=== PATIENT | female | born 1945 | race Caucasian/White ===

== ENCOUNTER → 2016-06-07 | Outpatient (CLI) | payer OTHER ==
[~2016-06-07] MED LIST: CHOL100010 PO; DSY/150 PO; FLUO10CA24 PO; LEVO125T72 PO
== END | disposition home or self-care (01) ==
LOC: C.MAMM 08:08
PROVIDERS: ATTEND Family Medicine
DX: M85.832 Other specified disorders of bone density and structure, left forearm (principal)

== ENCOUNTER → 2017-03-30 | Outpatient (CLI) | payer OTHER | END | disposition home or self-care (01) | LOC: C.RDSM 10:47 | PROVIDERS: ATTEND Orthopaedic Surgery | DX: M25.551 Pain in right hip (principal); M25.552 Pain in left hip ==

== ENCOUNTER → 2017-05-03 | Outpatient (CLI) | payer OTHER ==
[~2017-05-03] MED LIST changes: +CHOL20007 PO; +LEVO137T3 PO; +MAGN400T6 PO; +SACC250C11 PO
--- NOTE | 2017-05-03 09:31 | DIAGNOSTIC IMAGING REPORT ---
PELVIS 1 OR 2 VIEWS CLINICAL HISTORY: Right hip pain. Preoperative study. COMPARISON STUDY: 03/30/2017 FINDINGS: The iliac crests are not included on the current study. There are bilateral osteoarthritic changes right more severe than left. There are no acute fractures. There are no erosive or destructive changes. The study was performed with a sizing ball for preoperative measurement planning. IMPRESSION: Bilateral osteoarthritic changes, somewhat more severe on the right. No acute fractures. Electronically signed by: Tylor Liu M.D. 05/03/2017 9:29 AM Dictated Date/Time: 05/03/2017 9:26 AM
== END | disposition home or self-care (01) ==
LOC: C.RDSM 16:39
PROVIDERS: ATTEND Physician Assistant
DX: Z01.818 Encounter for other preprocedural examination (principal); M16.11 Unilateral primary osteoarthritis, right hip

== ENCOUNTER 2017-05-25 06:37 | Inpatient (IN) | payer OTHER ==
[2017-05-03 10:00] VITALS: BMI 33.0
--- NOTE | 2017-05-03 10:35 | PAT Medication Instructions ---
Service Date May 03, 2017. Current Home Medication List Cholecalciferol (Vitamin D3), 5,000 UNIT PO QAM Fluoxetine HCl (Fluoxetine HCl), 10 MG PO QAM Levothyroxine Sodium (Levothyroxine Sodium), 1 TAB PO QAM Magnesium Oxide (Mag-Ox), 400 MG PO QAM Saccharomyces Boulardii (Probiotic), 1 CAP PO QAM Trazodone HCl (Trazodone HCl), 75 MG PO HS Medication Instructions For Your Scheduled Surgery - Hold the following medications the morning of surgery: Saccharomyces Boulardii (Probiotic), 1 CAP PO QAM Magnesium Oxide (Mag-Ox), 400 MG PO QAM Cholecalciferol (Vitamin D3), 5,000 UNIT PO QAM - Take the following medications the morning of surgery with a sip of water: Fluoxetine HCl (Fluoxetine HCl), 10 MG PO QAM Levothyroxine Sodium (Levothyroxine Sodium), 1 TAB PO QAM - Take the following medications as scheduled the night before surgery: Trazodone HCl (Trazodone HCl), 75 MG PO HS If you have any questions please call us at [phone] or [phone] or [phone]
[2017-05-03 11:41] LABS: BASO % 0.9 %; BASO ABS # 0.05 K/uL (0-0.2); EOS % 2.1 %; EOS ABS # 0.12 K/uL (0-0.5); HEMOGLOBIN 13.2 g/dL (12.0-16.0); IG# 0.01 K/uL (0.00-0.02); LYMPH % 40.9 %; LYMPH ABS # 2.35 K/uL (1.2-3.4); MEAN CELL VOLUME 90.7 fL (80-100); MEAN CORPUSCULAR HEMOGLOBIN 30.7 pg (25-34); MEAN CORPUSCULAR HGB CONC 33.8 g/dl (32-36); MEAN PLATELET VOLUME 11.4 fL (7.4-10.4); MONO % 8.9 %; MONO ABS # 0.51 K/uL (0.11-0.59); PLATELET COUNT 227 K/uL (130-400); RED CELL DISTRIBUTION WIDTH CV 13.4 % (11.5-14.5); WHITE BLOOD COUNT 5.74 K/uL (4.8-10.8)
[2017-05-03 11:51] LABS: PTT PATIENT 25.9 SECONDS (21.0-31.0)
[2017-05-03 12:07] LABS: HEMOGLOBIN A1C 5.3 % (4.5-5.6)
[2017-05-03 12:26] LABS: ALBUMIN 3.7 gm/dl (3.4-5.0); ALT/SGPT 19 U/L (12-78); BLOOD UREA NITROGEN 20 mg/dl (7-18); CALCIUM 8.6 mg/dl (8.5-10.1); CARBON DIOXIDE 29 mmol/L (21-32); GLUCOSE 86 mg/dl (70-99); POTASSIUM 3.9 mmol/L (3.5-5.1); SODIUM 140 mmol/L (136-145)
[2017-05-03 12:28] LABS: ALKALINE PHOSPHATASE 73 U/L (45-117); AST/SGOT 15 U/L (15-37); TOTAL PROTEIN 6.8 gm/dl (6.4-8.2)
[~2017-05-25] VITALS: Ht 157.5 cm; Wt 82.2 kg
[2017-05-25] VITALS (12 sets, daily range): BP systolic 74–161; BP diastolic 43–80; PULSE 59–86; TEMP 36.3–37.1; O2SAT 92–97; Ht 157.5 cm; Wt 82.2 kg
[2017-05-25] MEDS: TRANEXAMIC ACID INJ 1,000 MG in SYRINGE 0 ML IV SCH ×2 (06:30→08:00)
[~2017-05-25 06:37] MED LIST changes: +ACETAMINOPHEN 500 MG TAB PO SCH; +CEFAZOLIN 2000MG IV PUSH 10 ML IV SCH; -CHOL100010 PO; +CeleBREX 200 MG CAP PO SCH; +DEXAMETHASONE 4 MG TAB PO SCH; +FAMOTIDINE 20 MG TAB PO SCH; +LACTATED RINGER'S 1000ML 1,000 ML IV SCH; +LACTATED RINGER'S 1000ML 500 ML IV SCH; +LACTATED RINGER'S 1000ML IV SCH; -LEVO125T72 PO; +ROPIVACAINE 5MG/ML 30 ML 150 MG, BUPIVACAINE/EPINEPHR 0.5% MPF 30 ML, KETOROLAC TROMETH... INFIL SCH; +SCOPOLAMINE 1.5 MG TDSY TD SCH; +TRAMADOL HCL 50 MG TAB PO SCH; +TRANEXAMIC ACID INJ 1,000 MG in SYRINGE 0 ML IV SCH; +VANCOMYCIN INJ 1,250 MG in SODIUM CHLORIDE 0.9% 250ML 250 ML IV SCH
[2017-05-25] MEDS ORDERED: BUPIVACAINE 0.5 % 5 MG/1 ML PF 10ML VIAL ONE (06:39)
--- NOTE | 2017-05-25 07:13 | History & Physical Bridge Note ---
H&P Re-Evaluation Bridge Note: I have examined the patient, reviewed the History & Physical and in the interval since the performance of the History & Physical I have noted the following changes of clinical significance: No changes noted
[2017-05-25] MEDS ORDERED: CEFAZOLIN SOD 2000MG/10 ML IV PUSH IV ONE (07:33)
[2017-05-25] MEDS ORDERED: CEFAZOLIN 2000MG IV PUSH 10 ML IV STA (07:37)
[2017-05-25] MEDS ORDERED: MIDAZOLAM HCL 1 MG/ML 2ML VIAL ONE (07:46)
[2017-05-25] MEDS ORDERED: FENTANYL CITRATE INJ 50 MCG/1 ML 2 ML VIAL ONE ×2 (07:46→09:52)
[2017-05-25] MEDS ORDERED: ORTHO JOINT ANESTHETIC ONE (07:58)
[2017-05-25] MEDS ORDERED: BACITRACIN 50000 UNIT VIAL ONE (07:58)
[2017-05-25] MEDS ORDERED: PROMETHAZINE HCL INJ 6.25 MG in SODIUM CHLORIDE 0.9% 50ML 50 ML IV PRN (08:45)
[2017-05-25] MEDS ORDERED: ONDANSETRON INJ 2 MG/ML 2 ML VIAL IV PRN ×2 (08:45→10:00)
[2017-05-25] MEDS ORDERED: EpHEDrine SULFATE INJ 50 MG/ML AMP IV PRN (08:45)
[2017-05-25] MEDS ORDERED: FENTANYL CITRATE INJ 50 MCG/1 ML 2 ML VIAL IV PRN (08:45)
[2017-05-25] MEDS ORDERED: ATROPINE SULFATE 0.1 MG/ML 5ML SYR IV PRN (08:45)
[2017-05-25] MEDS ORDERED: PROPOFOL IV EMULSION 10 MG/ML 20 ML VIAL IV ONE (09:04)
[2017-05-25] MEDS ORDERED: LIDOCAINE HCL 2% 2 ML VIAL (20MG/ML) ONE (09:05)
[2017-05-25] MEDS ORDERED: ONDANSETRON INJ 2 MG/ML 2 ML VIAL ONE (09:05)
[2017-05-25] MEDS ORDERED: DEXAMETHASONE SOD INJ 4 MG/ML VIAL ONE (09:05)
[2017-05-25] MEDS ORDERED: POVIDONE-IODINE OP SOLN 30 ML BTL ONE (09:21)
[2017-05-25] MEDS ORDERED: EpHEDrine SULFATE INJ 50 MG/ML AMP ONE (09:23)
[2017-05-25] MEDS ORDERED: HydrALAZINE HCL 20 MG/ML VIAL ONE (09:41)
--- NOTE | 2017-05-25 09:54 | [facility] Post Operative Brief Note ---
Immediate Operative Summary Operative Date May 25, 2017. Pre-Operative Diagnosis Degenerative Joint Disease Post-Operative Diagnosis Same as preop Procedure(s) Performed Right total hip arthroplasty Surgeon Dr. Singleton Slot Tag Inserter Surgeon(s) Oscar Washburn, Fellow Estimated Blood Loss 100 mL Findings Primary osteoarthritis R hip Fluids (cc crystalloids) 1800 cc Specimens Right hip bone and tissue Drains None Anesthesia Spinal with local Complication(s) None Disposition Recovery Room / PACU
[2017-05-25] MEDS ORDERED: MAGNESIUM HYDROXIDE SUSP 30 ML UDC PO PRN (10:00)
[2017-05-25] MEDS ORDERED: MoRPHine SULFATE 4 MG/ML 1 ML CARP\\VIAL IV PRN (10:00)
[2017-05-25] MEDS ORDERED: HYDROmorphone HCL 2 MG TAB PO PRN (10:00)
[2017-05-25] MEDS ORDERED: ZOLPIDEM TARTRATE 5 MG TAB PO PRN (10:00)
--- NOTE | 2017-05-25 10:48 | Anesthesiology Progress Note ---
Anesthesia Post Op Note Date & Time May 25, 2017 at 10:48 Vital Signs Pain Intensity: 0 Vital Signs Past 12 Hours Date Time Temp Pulse Resp B/P (MAP) Pulse Ox O2 Delivery O2 Flow Rate FiO2 05/25/17 10:46 77 13 105/48 92 05/25/17 10:46 78 13 05/25/17 10:42 112/51 05/25/17 10:41 15 05/25/17 10:41 78 15 05/25/17 10:39 36.7 05/25/17 10:36 14 05/25/17 10:36 78 14 115/49 05/25/17 10:31 80 12 113/50 05/25/17 10:31 12 05/25/17 10:30 80 16 05/25/17 10:30 79 16 94 05/25/17 10:26 121/52 05/25/17 10:25 81 16 94 05/25/17 10:25 81 16 05/25/17 10:21 112/54 05/25/17 10:20 81 20 05/25/17 10:20 81 20 97 05/25/17 10:15 36.6 83 12 113/53 90 Nasal Cannula 2 05/25/17 10:15 84 18 05/25/17 10:15 83 18 113/53 89 05/25/17 07:15 36.8 59 18 161/80 97 Room Air Notes Mental Status: alert / awake / arousable, participated in evaluation Pt Amnestic to Procedure: Yes Nausea / Vomiting: adequately controlled Pain: adequately controlled Airway Patency, RR, SpO2: stable & adequate BP & HR: stable & adequate Hydration State: stable & adequate Neuraxial Anesthesia: was administered, sensory block is resolving Anesthetic Complications: no major complications apparent
--- NOTE | 2017-05-25 11:02 | OPERATIVE REPORT ---
DATE OF OPERATION: 05/25/2017 PREOPERATIVE DIAGNOSIS: Right hip osteoarthritis. POSTOPERATIVE DIAGNOSIS: Same. OPERATION PERFORMED: Right total hip arthroplasty. SURGEON: Grzegorz Etienne MD. COMPUTER SUPPORT TECHNICIAN: Oscar Washburn MD. ESTIMATED BLOOD LOSS: 100 mL. IV FLUIDS: 1800 mL crystalloid. URINE OUTPUT: Not recorded. SPECIMENS: None. COMPLICATIONS: None. IMPLANTS: 1. DePuy 52 mm outer diameter Gription acetabular sector cup: 2. DePuy marathon polyethylene acetabular liner for a 32 mm head. 3. DePuy [place] size 4 standard offset tapered femoral stem. 4. Articul Ponce DePuy 32 mm femoral head +5 offset with a 12/14 taper. 5. Two [place] 6.5 mm cancellous bone screws, 1 measuring 40 mm and the other 20 mm. INDICATIONS: Ms. Christianson is a 72-year-old female who has had pain in her right hip for the past 2 years. This is affecting her quality of living. She is only able to walk about a half mile, but with severe pain. She has x-rays demonstrating joint space narrowing and peripheral osteophyte formation. Her physical exam shows a positive impingement test with equivocal Stinchfield test. Her hip flexion is limited only to 85 degrees with groin pain. She has failed conservative management. I had a long discussion with her about the risks and benefits of surgery, alternatives to surgery and expected outcomes. After reviewing all these, she elected to proceed. All questions were answered. Informed consent was signed. OPERATIVE FINDINGS: Severe degenerative joint disease, predominantly affecting the medial aspect of the hip but with also peripheral osteophyte formation. A metal on polyethylene bearing total hip replacement was performed without complication. DESCRIPTION OF PROCEDURE: The patient was identified in the preoperative holding area where her surgical site was marked. She was given a spinal anesthetic by anesthesia then brought back to the main operating room where she was placed on the operating room table, moved in the lateral decubitus position. An axillary roll was placed and all bony prominences were padded. Perioperative antibiotics and tranexamic acid were administered. She was prepped and draped in normal sterile fashion. Prior to incision, a multidisciplinary timeout was called. All in the room were in agreement. We began by making a 14 cm long incision centered over the posterolateral aspect of the greater trochanter for a posterior approach of the hip. We dissected down through subcutaneous tissues to the level of the fascia. The fascia was incised in line with the skin incision. Charnley bow was placed. The trochanteric bursa was excised. The piriformis and short external rotators as well as quadratus femoris were dissected off the posterior aspect of the femur. A box cut was made in the capsule and the hip was dislocated without difficulty. The neck cut was made at our preoperative template of approximately 12 mm above the lesser trochanter. The acetabulum was exposed. The contents of the cotyloid fossa were removed with electrocautery and a rongeur. The labrum was sharply excised with a knife. We then began to prepare acetabulum. We began by reaming with a 46 mm reamer to medialize the acetabulum. We then sequentially reamed up by 1 mm reamers until we reached a 51 mm reamer. We had excellent cancellous bony bleeding and it reamed down to, but not through, the medial wall as was our preoperative plan. We then used a 52 mm reamer just a touch to the outer wall of the acetabulum to prevent a rim fracture with insertion of the cup. I then opened up a 52 mm Gription cup which was impacted down into position with 40 degrees of lateral opening and 25 degrees of anteversion. Two cancellous bone screws were placed without difficulty. The polyethylene for a 32 mm head was then opened up and impacted down into position. We confirmed that the locking mechanism had engaged. We then placed a Ray-Eriberto in the cup to protect the liner and moved on to our femoral preparation. The femur was exposed using a Castro retractor as well as an angled Hohmann to protect the hip abductors. The lateral neck was excised and the canal finder was placed followed by a lateralizing reamer and a rat tail rasp to remove lateral bone from the proximal femur. We then sequentially reamed up to between a size 4 and 5 using the intramedullary reamers. We then began broaching. We broached up to a size 4, which sat nicely flush with our femoral neck cut and had excellent torsional stability. We then placed a standard offset neck with a +5 head. The hip was reduced without difficulty. A shuck test was appropriate. Her leg lengths were symmetrical as measured at the heels and the tops of the patella. The patient had no impingement with extension and external rotation. She was stable in the sleeper position and at 90 degrees of hip flexion she could internally rotate 50 degrees before starting to lever out of the cup. I was very happy with the stability exam. The trial femoral component was then removed. The femoral canal was irrigated out and dried. The size 4 standard offset stem was then opened up and impacted down into position. It sat approximately 1 mm more proud than the broach. We then opened up the +5 mm metal femoral head which was impacted down on the trunnion, which had been cleaned and dried. The hip was then reduced without difficulty. At this point, the 500 mL of Betadine impregnated solution was placed in the wound and was allowed to soak for 3 minutes. This was then removed from the wound and the wound was irrigated with normal saline. The periarticular injection cocktail of ketorolac, dexamethasone, ropivacaine, clonidine and epinephrine was then injected into the pericapsular soft tissues as well as in the subcutaneous tissues. We then began to close. The short external rotators and the piriformis were tagged with a #2 Vicryl suture. These were passed through the abductor tendon as well as through a single drill hole in the posterior aspect of the greater trochanter and tied down over a bony bridge. The fascia was run with a looped #1 PDS suture. Two layers of #1 PDS were used for the subcutaneous layers. A 3-0 Monocryl was placed in the dermal layer followed by Steri-Strips. A Silverlon dressing was then placed followed by 4 x 4's, and ABD pads and foam tape for a compressive dressing. The patient was placed into an abduction pillow rolled on to the hospital bed. Her sedation was lifted. She was transferred to recovery room in stable condition. POSTOPERATIVE COURSE: The patient will be admitted to floor. She will be weightbearing as tolerated with posterior hip precautions. She will be on aspirin for DVT prophylaxis. I attest to the content of the Intraoperative Record and any orders documented therein. Any exceptions are noted below. PERICO
--- NOTE | 2017-05-25 11:18 | DIAGNOSTIC IMAGING REPORT ---
R PELVIS/UNILATERAL HIP 1 VIEW HISTORY: 72 years-old Female IN PACU - A/P PELVIS and LATERAL HIP INCLUDING ALL OF IMPLANT status post right hip arthroplasty. Right hip osteoarthritis. COMPARISON: Pelvis radiograph 05/03/2017 TECHNIQUE: AP view of the pelvis with crosstable lateral view of the right hip. FINDINGS: The bones are mildly demineralized. Moderate left hip osteoarthritis. Degenerative changes are also seen within the SI joints and pubic symphysis. Postoperative changes from recent right hip total joint arthroplasty. No evidence of periprosthetic fracture or malalignment. Expected postsurgical soft tissue swelling and deep tissue air about the right hip and proximal right femur. No retained foreign body identified. Probable phleboliths of the pelvis. IMPRESSION: Status post right hip total joint arthroplasty without complication identified. The above report was generated using voice recognition software. It may contain grammatical, syntax or spelling errors. Electronically signed by: Stephen Farmer M.D. 05/25/2017 11:17 AM Dictated Date/Time: 05/25/2017 11:15 AM
[2017-05-25] MEDS: D5W AND 1/2NSS + 20MEQ KCL 1,000 ML IV SCH ×2 (13:28→23:25)
[2017-05-25] MEDS: KETOROLAC TROMETHAMINE 15 MG/ML VIAL IV. SCH ×3 (13:28→23:27)
[2017-05-25] MEDS: ACETAMINOPHEN 500 MG TAB PO SCH ×2 (13:29→21:49)
[2017-05-25] MEDS: TRAMADOL HCL 50 MG TAB PO PRN (14:21)
[2017-05-25] MEDS: CHECK SCOPOLAMINE PATCH PLACEMENT SCH ×2 (16:00→23:25)
[2017-05-25] MEDS ORDERED: TRANEXAMIC ACID INJ 1,000 MG in SODIUM CHLORIDE 0.9% 100ML 100 ML IV ONE (16:00)
[2017-05-25] MEDS: DOCUSATE SODIUM 100 MG CAP PO SCH (21:49)
[2017-05-25] MEDS: ASPIRIN 81 MG ECTAB PO SCH (21:49)
[2017-05-26 03:00] VITALS: BP 133/70; PULSE 73; TEMP 36.9; O2SAT 93
[2017-05-26] MEDS: KETOROLAC TROMETHAMINE 15 MG/ML VIAL IV. SCH (05:14)
[2017-05-26] MEDS: ACETAMINOPHEN 500 MG TAB PO SCH ×2 (05:16→14:03)
[2017-05-26 06:20] LABS: HEMATOCRIT 32.5 % (37-47); IG# 0.03 K/uL (0.00-0.02); LYMPH % 7.3 %; LYMPH ABS # 1.22 K/uL (1.2-3.4); MEAN CELL VOLUME 90.3 fL (80-100); MEAN CORPUSCULAR HEMOGLOBIN 30.6 pg (25-34); MEAN CORPUSCULAR HGB CONC 33.8 g/dl (32-36); MEAN PLATELET VOLUME 11.5 fL (7.4-10.4); MONO % 7.7 %; NEUT % 84.8 %; NEUT ABS # 14.23 K/uL (1.4-6.5); PLATELET COUNT 229 K/uL (130-400); RED CELL DISTRIBUTION WIDTH CV 13.7 % (11.5-14.5); RED CELL DISTRIBUTION WIDTH SD 45.3 fL (36.4-46.3); WHITE BLOOD COUNT 16.78 K/uL (4.8-10.8)
[2017-05-26 06:52] LABS: CALCIUM 8.4 mg/dl (8.5-10.1); CREATININE 1.04 mg/dl (0.60-1.20); POTASSIUM 4.3 mmol/L (3.5-5.1)
--- NOTE | 2017-05-26 07:33 | Orthopedic Progress Note ---
Orthopedic Progress Note Date of Service May 26, 2017. Subjective Post OP Day: 1 Reports: feeling well, pain controlled w PO medications, Denies: complaints, chest pain, SOB, nausea / vomiting Additional Notes: Pain has been controlled on toradol IV, tramadol, and tylenol. Hasn't taken any IV morphine or PO dilaudid. Walked to bathroom this morning. Objective N/V intact, dressing C/D/I, A&O x3, toes mobile Date Time Temp Pulse Resp B/P (MAP) Pulse Ox O2 Delivery O2 Flow Rate FiO2 05/26/17 03:00 36.9 73 17 133/70 (91) 93 Room Air 05/25/17 23:26 37.1 64 18 124/67 (86) 93 Room Air 05/25/17 19:43 36.7 67 16 139/75 (96) 92 Nasal Cannula 2.0 05/25/17 19:25 Room Air 05/25/17 17:25 86 105/72 (83) 94 Nasal Cannula 2.0 05/25/17 16:07 36.6 78 18 111/66 (81) 95 Nasal Cannula 2.0 05/25/17 15:29 70 96/52 (67) 94 Nasal Cannula 2.0 05/25/17 15:20 94/52 (66) 05/25/17 14:57 64 19 74/43 (53) 96 Room Air 75/44 (54) 87/51 (63) 05/25/17 14:10 36.3 75 16 101/49 (66) 93 Nasal Cannula 2.0 05/25/17 13:12 36.4 73 16 97/59 (72) 94 Room Air 2.0 05/25/17 11:43 36.4 63 95/53 (67) 96 Nasal Cannula 2.0 05/25/17 11:10 Nasal Cannula 2.0 05/25/17 11:10 94 Nasal Cannula 2.0 05/25/17 11:10 36.4 67 18 114/64 (81) 94 Nasal Cannula 2.0 05/25/17 10:56 103/48 05/25/17 10:52 78 14 05/25/17 10:52 78 14 94 05/25/17 10:51 105/47 05/25/17 10:47 78 15 05/25/17 10:47 79 15 95 05/25/17 10:46 77 13 105/48 92 05/25/17 10:46 78 13 05/25/17 10:42 112/51 05/25/17 10:41 15 05/25/17 10:41 78 15 05/25/17 10:39 36.7 05/25/17 10:36 14 05/25/17 10:36 78 14 115/49 05/25/17 10:31 80 12 113/50 05/25/17 10:31 12 05/25/17 10:30 80 16 05/25/17 10:30 79 16 94 05/25/17 10:26 121/52 05/25/17 10:25 81 16 94 05/25/17 10:25 81 16 05/25/17 10:21 112/54 05/25/17 10:20 81 20 05/25/17 10:20 81 20 97 05/25/17 10:15 36.6 83 12 113/53 90 Nasal Cannula 2 05/25/17 10:15 84 18 05/25/17 10:15 83 18 113/53 89 Laboratory Results 24 Hours: Test 05/26/17 05:31 White Blood Count 16.78 K/uL Red Blood Count 3.60 M/uL Hemoglobin 11.0 g/dL Hematocrit 32.5 % Mean Corpuscular Volume 90.3 fL Mean Corpuscular Hemoglobin 30.6 pg Mean Corpuscular Hemoglobin Concent 33.8 g/dl Platelet Count 229 K/uL Mean Platelet Volume 11.5 fL Neutrophils (%) (Auto) 84.8 % Lymphocytes (%) (Auto) 7.3 % Monocytes (%) (Auto) 7.7 % Eosinophils (%) (Auto) 0.0 % Basophils (%) (Auto) 0.0 % Neutrophils # (Auto) 14.23 K/uL Lymphocytes # (Auto) 1.22 K/uL Monocytes # (Auto) 1.30 K/uL Eosinophils # (Auto) 0.00 K/uL Basophils # (Auto) 0.00 K/uL Assessment & Plan Assessment: POD 1 s/p R HORACIO doing well Plan: PT/OT this AM May discharge home if cleared by PT/OT ASA, TEDs, footpumps for DVT prophylaxis
[2017-05-26 07:46] VITALS: BP 122/72; PULSE 60; TEMP 36.8; O2SAT 93
[2017-05-26] MEDS: CHECK SCOPOLAMINE PATCH PLACEMENT SCH (08:00)
--- NOTE | 2017-05-26 08:40 | Orthopedic Progress Note ---
Orthopedic Progress Note Date of Service May 26, 2017. Subjective Post OP Day: 1 Reports: feeling well, pain controlled w PO medications, Denies: complaints, chest pain, SOB, nausea / vomiting, light headedness, calf pain, using CRUISE GUIDE Objective calves soft nontender, N/V intact, hip located, capillary refill less than 2 sec., dressing C/D/I, A&O x3, toes mobile, CMS intact Date Time Temp Pulse Resp B/P (MAP) Pulse Ox O2 Delivery O2 Flow Rate FiO2 05/26/17 07:46 36.8 60 18 122/72 (89) 93 Room Air 05/26/17 03:00 36.9 73 17 133/70 (91) 93 Room Air 05/25/17 23:26 37.1 64 18 124/67 (86) 93 Room Air 05/25/17 19:43 36.7 67 16 139/75 (96) 92 Nasal Cannula 2.0 05/25/17 19:25 Room Air 05/25/17 17:25 86 105/72 (83) 94 Nasal Cannula 2.0 05/25/17 16:07 36.6 78 18 111/66 (81) 95 Nasal Cannula 2.0 05/25/17 15:29 70 96/52 (67) 94 Nasal Cannula 2.0 05/25/17 15:20 94/52 (66) 05/25/17 14:57 64 19 74/43 (53) 96 Room Air 75/44 (54) 87/51 (63) 05/25/17 14:10 36.3 75 16 101/49 (66) 93 Nasal Cannula 2.0 05/25/17 13:12 36.4 73 16 97/59 (72) 94 Room Air 2.0 05/25/17 11:43 36.4 63 95/53 (67) 96 Nasal Cannula 2.0 05/25/17 11:10 Nasal Cannula 2.0 05/25/17 11:10 94 Nasal Cannula 2.0 05/25/17 11:10 36.4 67 18 114/64 (81) 94 Nasal Cannula 2.0 05/25/17 10:56 103/48 05/25/17 10:52 78 14 05/25/17 10:52 78 14 94 05/25/17 10:51 105/47 1/4/18 10:47 78 15 05/25/17 10:47 79 15 95 05/25/17 10:46 77 13 105/48 92 05/25/17 10:46 78 13 05/25/17 10:42 112/51 05/25/17 10:41 15 05/25/17 10:41 78 15 05/25/17 10:39 36.7 05/25/17 10:36 14 05/25/17 10:36 78 14 115/49 05/25/17 10:31 80 12 113/50 05/25/17 10:31 12 05/25/17 10:30 80 16 05/25/17 10:30 79 16 94 05/25/17 10:26 121/52 05/25/17 10:25 81 16 94 05/25/17 10:25 81 16 05/25/17 10:21 112/54 05/25/17 10:20 81 20 05/25/17 10:20 81 20 97 05/25/17 10:15 36.6 83 12 113/53 90 Nasal Cannula 2 05/25/17 10:15 84 18 05/25/17 10:15 83 18 113/53 89 Laboratory Results 24 Hours: Test 05/26/17 05:31 White Blood Count 16.78 K/uL Red Blood Count 3.60 M/uL Hemoglobin 11.0 g/dL Hematocrit 32.5 % Mean Corpuscular Volume 90.3 fL Mean Corpuscular Hemoglobin 30.6 pg Mean Corpuscular Hemoglobin Concent 33.8 g/dl Platelet Count 229 K/uL Mean Platelet Volume 11.5 fL Neutrophils (%) (Auto) 84.8 % Lymphocytes (%) (Auto) 7.3 % Monocytes (%) (Auto) 7.7 % Eosinophils (%) (Auto) 0.0 % Basophils (%) (Auto) 0.0 % Neutrophils # (Auto) 14.23 K/uL Lymphocytes # (Auto) 1.22 K/uL Monocytes # (Auto) 1.30 K/uL Eosinophils # (Auto) 0.00 K/uL Basophils # (Auto) 0.00 K/uL Assessment & Plan Assessment: POD 1 s/p R HORACIO doing well Plan: PT/OT this AM Patient would like to go to rehab facility for approx 1 wk because she lives alone Would possibly like to transition to home rehab after week of inpatient rehab Will need eval by case management for inpatient rehab WBAT on Rt LE with walker assistance Cont to hip precautions ASA, TEDs, footpumps for DVT prophylaxis Will f/u w/ Bina Conner PA-C at [facility] in 2 wks
[2017-05-26] MEDS ORDERED: TRAM-10 PO (08:49)
[2017-05-26] MEDS ORDERED: ASPI81TA28 PO (08:49)
[2017-05-26] MEDS ORDERED: CLB/200 PO (08:49)
[2017-05-26] MEDS ORDERED: TYLOTC500 PO (08:49)
--- NOTE | 2017-05-26 08:53 | Discharge Instructions ---
Discharge Instructions Date of Service May 26, 2017. Admission Reason for Admission: Right Hip Primary Osteoarthritis Discharge Discharge Diagnosis / Problem: S/P Right total hip arthroplasty Discharge Goals Goal(s): Decrease discomfort, Improve function, Increase independence Activity Recommendations Activity Limitations: as noted below Lifting Limitations: until after follow-up appointment Exercise/Sports Limitations: until after follow-up appointment May Resume Sexual Activity: after follow-up appointment Shower/Bathe: tomorrow, keep incision dry Driving or Machine Use: No driving until cleared by orthopedic surgeon Weightbearing Status: Right weightbearing (as tolerated with walker assistance) . Instructions / Follow-Up Instructions / Follow-Up Post-operative Instructions Dear Patient and Family/Friends, Before you are discharged from the hospital, it is important to know what to expect when you get home after surgery. To that end, we have created this sheet of discharge instructions which covers many commonly asked questions. Make sure you go through this sheet in its entirety with your nurse before you are discharged. Please note that we will go over the specifics of your surgery and recovery when you return for your first post-operative visit. Sincerely, Dr. Etienne Pain Expect to be in a fair amount of pain after surgery. Remember, our goal is not to eliminate your pain, but to make it tolerable. It is a good idea to stay ahead of your pain by taking the medications you were prescribed once you get home. Typically, the pain starts improving 3-7 days after surgery. You should start weaning off the narcotic pain medication (oxycodone, hydrocodone, hydromorphone, morphine) as soon as your pain improves. Please call our office if your pain is not adequately controlled. Ice Ice your operative site at least 5 times a day for 15-30 minutes at a time. Make sure you have a thin cloth between the ice or cooling unit and your skin to prevent henao bite. This is especially important if you received a nerve block. Continue icing your operative site for the first 5-7 days after surgery , then as needed. Diet/Nausea/Vomiting Start by drinking clear liquids and eating crackers. If you can tolerate this, then you may resume your normal diet. If you feel nauseated or vomit, take Zofran/ondansetron (if prescribed). Please call our office if you have intractable nausea or vomiting, or, if after hours, you may go to the Emergency Room for help. Constipation Constipation is a common side effect of narcotic pain medication. If you have not had a bowel movement within 2 days after surgery, we recommend purchasing an over the counter laxative such as Milk of Magnesia, Dulcolax, or Miralax from a local pharmacy, and taking it as instructed. Call our clinic if any questions. Slings and Braces If you were placed in a sling or brace, it must be worn at all times, including sleep. You may remove your sling or brace for physical therapy, home exercises , and showering. The length of time you will be in your brace and range of motion restrictions depends on what surgery you had; these details will be reviewed at your first post-operative appointment. Nerve block The anesthesia team sometimes places a nerve block to help with post-operative pain control. This results in significant numbness and inability to move the extremity. The nerve block usually wears off in 8-12 hours, but sometimes can last up to 24 hours. Please call our office if you are still unable to move your extremity after 24 hours, unless you received a pain pump to take home. Nerve blocks typically wear off quickly, so start taking pain medication as soon as you start feeling soreness near your surgical site. Weight bearing and Range of Motion. Do not bear any weight through your operative extremity immediately after surgery. If you had upper extremity surgery, do not lift anything with that arm. If you are in a knee brace, keep it locked in place until your follow-up. We will discuss your weight bearing, range of motion, and lifting restrictions in detail at your first post-operative appointment. Continuous Passive Motion (CPM) Machine If you were prescribed a CPM machine, it will start after your first post- operative appointment, at which time we will give you instructions on the range of motion settings and duration of treatment Physical therapy You will be given a prescription for physical therapy or occupational therapy at your first post-operative appointment. Typically, patients start therapy within 1 week of surgery Wound care and showering We will inspect your wound at your first post-operative visit, and may do a dressing change at that time. Most patients will be in a water-proof dressing that is removed 14 days after surgery. It is normal to see some dried blood on the dressing. Do not remove your dressing, paper strips or sutures yourself unless you are given permission. Showering is allowed the day after surgery. Do not scrub or remove any dressings. The wound should not be submerged underwater (i.e. in a bathtub or pool) until 4 weeks after surgery KENDRA stockings If you were given white stockings, these are to be worn at all times except to shower (on both legs) for the first 2 weeks after surgery. Driving You may not drive while taking narcotic pain medication or while in a cast, splint, sling or brace. You, the patient, need to make the final determination about when you are safe to drive, however, the earliest you may consider driving after surgery is below: Hand/Wrist/Elbow Surgery: 3 days Shoulder Surgery: 2 weeks Hip,/Knee/Ankle Surgery: 4 weeks Fracture repair: 6 weeks Return to Work Your return to work depends on what surgery was done and what type of work you do. Please bring any paperwork your employer needs completed to your first post -operative visit. Also, bring a description of your job duties, as this helps us to understand what risks you may face at work. Travel Avoid long distance travel (greater than 1 hour) in airplanes and cars for the first 6 weeks after surgery. If you must travel, you need to have a Doppler ultrasound done before you travel to rule out a blood clot in your legs. Follow-up You should have a follow-up appointment already scheduled 1-2 days after surgery. If not, please contact our office to make this appointment before you leave the hospital. When to call the office It is normal to have swelling and bruising in the limb that was operated on. This will improve with time. It is also normal to have fevers for the first 2 days after surgery. Reasons you should call your doctor include: Uncontrolled pain; Nausea, vomiting, or constipation that does not improve with medication; Fevers over 101.5, chills, sweats; Drainage or bleeding from the wound; Foul odor; Spreading areas of redness; Any other concerns Current Hospital Diet Patient's current hospital diet: Regular Diet Discharge Diet Recommended Diet: Regular Diet Procedures Procedures Performed: Right total hip arthroplasty Pending Studies Studies pending at discharge: no Laboratory Results Hemoglobin A1c Test 05/03/17 10:42 Range/Units Estimated Average Glucose 105 mg/dl Hemoglobin A1c 5.3 4.5-5.6 % Medical Emergencies . Who to Call and When: Medical Emergencies: If at any time you feel your situation is an emergency, please call 911 immediately. . Non-Emergent Contact Non-Emergency issues call your: Primary Care Provider Call Non-Emergent contact if: you have a fever, temperature is above 101.5, your pain is not controlled, your pain is worsening, wound has increased drainage, you have any medication questions . "Provider Documentation" section prepared by Richard Conner. . Healthcare Management Consultant Recommendations Healthcare Management Consultant Recommendations: Recommend placement into inpatient rehab facility for at least 1 wk then possible home health rehab for an additional week. Will Discuss outpatient rehab at 2 wk post op follow visit at our clinic. VTE Core Measure Inpt VTE Proph given/why not?: Other Anticoagulation (EC Aspirin 81 mg), T.E.D. Stockings, SCD's [place] Drug Monitoring Program Search Results: patient reviewed within database, no issues identified, see additional documentation
--- NOTE | 2017-05-26 09:08 | Discharge Summary ---
Orthopedic Discharge Summary Admission Date/Reason May 25, 2017 at 07:48 Right Hip Primary Osteoarthritis. Discharge Date/Disposition May 26, 2017 Rehab ([facility] for at least 1 wk) Diagnosis Principal Diagnosis: Right hip osteoarthritis Procedure(s) Performed Right total hip arthroplasty Consultations office services coordinator for eval for inpatient therapy Medication Reconciliation Aspirin EC 81 mg 1 tab po daily for DVT Prophylaxis x 30 days Celebrex 200 mg 1 tab po daily prn for pain x 30 day with 1 refill Tylenol 500 mg 2 tabs po q 6 hrs prn pain x 30 days with 1 refill Tramadol 50 mg 1-2 tabs po q 4 hrs prn pain #60. See Med list for home meds. Admission Physical Exam As per Admitting History & Physical. Hospital Course Patient is post op day after undergoing Rt HORACIO. Had uneventful hospital stay last night. Pain well controlled with PO Meds. No CP, SOB, N/V, diarrhea or constipation. Neurovascular intact in Rt LE and dressing clean. Patient would like to be discharge to rehab facility for 1 wk then transition to in home rehab for an additional week. Spoke with case management from [facility] and they will eval for placement. At 2 wk f/u we will discuss outpatient rehab for an additional 6 wks. Discharge Instructions Please refer to the electronic Patient Visit Report (Discharge Instructions) for additional information.
[2017-05-26] MEDS: ASPIRIN 81 MG ECTAB PO SCH (09:14)
[2017-05-26] MEDS: DOCUSATE SODIUM 100 MG CAP PO SCH (09:14)
[2017-05-26 09:37] VITALS: O2SAT 93
[2017-05-26] MEDS ORDERED: NURSING VERBAL MED ORDER ONE (09:45)
[2017-05-26] MEDS ORDERED: TRAZODONE HCL 50 MG TAB PO PRN (09:45)
[2017-05-26] MEDS ORDERED: FLUOXETINE HCL 10 MG CAP PO SCH (10:00)
[2017-05-26] MEDS: TRAMADOL HCL 50 MG TAB PO PRN (10:03)
[2017-05-26 12:26] VITALS: BP 133/73; PULSE 60; TEMP 36.8; O2SAT 95
[2017-05-26 14:24] VITALS: BP 133/73; PULSE 60; TEMP 36.8; O2SAT 95
[2017-05-26] MEDS ORDERED: CeleBREX 200 MG CAP PO SCH (21:00)
[2017-05-27] MEDS ORDERED: LEVOTHYROXINE 137 MCG TAB PO SCH (06:00)
== END 2017-05-26 16:00 | DRG 470 ==
LOC: C.ACU 06:37 → C.3E 07:48 → ENRESERV 10:35
PROVIDERS: ADMIT Orthopaedic Surgery; ATTEND Orthopaedic Surgery
PROC: 0SR90JA Replacement of Right Hip Joint with Synthetic Substitute, Uncemented, Open Approach (ICD-10-PCS; principal; 2017-05-25 08:15)
DX: M16.11 Unilateral primary osteoarthritis, right hip (principal); Z79.899 Other long term (current) drug therapy

== ENCOUNTER → 2017-10-03 | Outpatient (CLI) | payer OTHER ==
[~2017-10-03] MED LIST changes: -ACETAMINOPHEN 500 MG TAB PO SCH; +ASPI81TA28 PO; -CEFAZOLIN 2000MG IV PUSH 10 ML IV SCH; +CLB/200 PO; -CeleBREX 200 MG CAP PO SCH; -DEXAMETHASONE 4 MG TAB PO SCH; -FAMOTIDINE 20 MG TAB PO SCH; -LACTATED RINGER'S 1000ML 1,000 ML IV SCH; -LACTATED RINGER'S 1000ML 500 ML IV SCH; -LACTATED RINGER'S 1000ML IV SCH; -ROPIVACAINE 5MG/ML 30 ML 150 MG, BUPIVACAINE/EPINEPHR 0.5% MPF 30 ML, KETOROLAC TROMETH... INFIL SCH; -SCOPOLAMINE 1.5 MG TDSY TD SCH; +TRAM-10 PO; -TRAMADOL HCL 50 MG TAB PO SCH; -TRANEXAMIC ACID INJ 1,000 MG in SYRINGE 0 ML IV SCH; +TYLOTC500 PO; -VANCOMYCIN INJ 1,250 MG in SODIUM CHLORIDE 0.9% 250ML 250 ML IV SCH
== END | disposition home or self-care (01) ==
LOC: C.RDSM 10:30
PROVIDERS: ATTEND Orthopaedic Surgery
DX: M25.562 Pain in left knee (principal); Z96.641 Presence of right artificial hip joint

== ENCOUNTER 2019-04-25 07:27 | Inpatient (IN) ==
--- NOTE | 2019-04-04 15:56 | PAT Medication Instructions ---
Medication Instructions Date of Service April 04, 2019 Home Medications Lactobacillus rhamnosus GG [Culturelle] 1 cap PO HS 04/02/19 [History Confirmed 04/02/19] cholecalciferol (vitamin D3) [Vitamin D3] 4,000 unit PO QAM 04/02/19 [History Confirmed 04/02/19] fluoxetine 10 mg PO QAM 04/02/19 [History Confirmed 04/02/19] levothyroxine 88 mcg PO QAM 04/02/19 [History Confirmed 04/02/19] trazodone 150 mg PO HS 04/02/19 [History Confirmed 04/02/19] DO NOT take the morning of surgery cholecalciferol (vitamin D3) [Vitamin D3] 4,000 unit PO QAM 04/02/19 [History Confirmed 04/02/19] Take morning of surgery With a small sip of water, OTHERWISE NOTHING TO EAT OR DRINK AFTER MIDNIGHT: fluoxetine 10 mg PO QAM 04/02/19 [History Confirmed 04/02/19] levothyroxine 88 mcg PO QAM 04/02/19 [History Confirmed 04/02/19] Take evening before surgery Lactobacillus rhamnosus GG [Culturelle] 1 cap PO HS 04/02/19 [History Confirmed 04/02/19] trazodone 150 mg PO HS 04/02/19 [History Confirmed 04/02/19] Other Notes If you have any questions please call us at [phone] or [phone] or [phone] or [phone]
--- NOTE | 2019-04-08 15:14 | History & Physical Report ---
Date of Service April 08, 2019 Assessment & Plan (1) Osteoarthritis of left hip: DIAGNOSIS: Left hip osteoarthritis. PROCEDURE: Left total hip arthroplasty. PLAN: The patient is scheduled to undergo this procedure with Dr. Grzegorz Etienne at the [facility] on 04/25/2019. Risks and complications of the surgery such as infection, bleeding, pain, scarring, nerve and blood vessel damage, weakness, wound problems, stiffness, incomplete relief of symptoms, heart attack, stroke, , hardware failure, loosening, wear, fracture dislocation, leg-length inequality, blood clots and embolism were explained to the patient by Dr. Etienne on her visit today. She understood and agreed. Informed consent to perform the procedure was obtained. We will also obtain a preoperative medical clearance from the patient's primary care provider, Dr. Orlando Daniel, along with preoperative CBC with differential, complete metabolic panel, PT/INR, blood type and screen, urinalysis, urine culture, EKG, a hemoglobin A1C. 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 We will also be sure that she receives vancomycin along with her preoperative Ancef. The patient will be provided with prescriptions for oxycodone for postoperative pain control upon discharge from the hospital. She will also be prescribed Diclofenac Sodium and Tylenol along with enteric-coated aspirin for DVT prophylaxis to use in addition to her KENDRA stockings. The patient will bring a walker with her to the hospital. She was given paperwork for a handicap placard that she will need to obtain prior to the procedure. We will provide her with PT and OT 2 to 3 times weekly for up to 6 weeks postoperatively at her 2 week follow up. She would like to do inhome therapy after discharge. The patient was again advised that she will need to take amoxicillin before dental procedures following her joint replacement. She was also given some information about attending classes to know what to expect after this procedure. The patient verbalized understanding of all information provided at today's visit, thanked us for the time that we have spent with her and states if she has questions or concerns that should arise prior to her scheduled surgery date, she will contact the clinic accordingly. History of Present Illness Chief Complaint: Left Hip pain Primary Care Provider: Orlando Daniel MD HISTORY OF PRESENT ILLNESS: This 74-year-old female presents to the clinic today for a preoperative history and physical. The patient has had a longstanding history of significant right hip pain for the past several years. The patient states she has been receiving massage therapy with no relief of her back or hip pain. She takes Aleve twice daily, which helps mildly. The patient also states she sees a chiropractor for spinal stenosis, but continues to have hip pain and states that it is affecting her daily life and prevents her from walking long distances that she had done regularly for several years. The patient refers most of her pain to the anterolateral aspect of her left hip. The patient denies numbness or tingling in her left lower extremity or any traumatic injury that may have caused this issue. PAST MEDICAL HISTORY: Depression, diverticulosis, fibromyalgia, gastroesophageal reflux, breast cancer, hypothyroidism, insomnia, lactose intolerance, lumbar spinal stenosis, obesity, osteopenia, and stress incontinence. PAST SURGICAL HISTORY: Right total hip arthroplasty, Colonoscopy, bilateral mastectomy, biopsy of the breast, excision of mastectomy scar, breast reconstruction, lymphoscintigraphy, core needle biopsy of the breast under ultrasound guidance, bilateral blepharoplasty, right ankle open reduction internal fixation. Total abdominal hysterectomy with bilateral salpingo- oophorectomy, dilation and curettage, basal cell carcinoma from the right calf and forehead, left cataract removal, bilateral tubal ligation. FAMILY HISTORY: Father: Aortic aneurysm, coronary artery bypass graft, smoking history, and colonic polyps. Mother: Cigarette smoker, COPD, osteoporosis. Daughter: Hypothyroidism. Son: Hypertension. Maternal grandfather: Type 2 diabetes. ALLERGIES: THE PATIENT HAS MEDICATION ALLERGIES TO CELEXA, EFFEXOR AND PERCOCET 5/325. CURRENT MEDICATIONS: Fluoxetine 10-mg oral tablet 1 cap daily, levothyroxine 88-mcg oral tablet 1 tab daily, trazodone 150-mg oral tablet 1/2 tab at bedtime, Tylenol Arthritis extended release 650-mg oral tablet 2 tabs every 8 hours as needed, vitamin D3 2000 international unit capsule 2 caps daily. SOCIAL HISTORY: The patient denies a history of cigarette smoking, drug abuse or any alcohol use. Allergies Allergy/AdvReac Type Severity Reaction Status Date / Time oxycodone Allergy Unknown Red Rash & Verified 04/02/19 13:54 Slight Fever Home Medications Home Medications Medication Instructions Recorded Confirmed Type Lactobacillus rhamnosus GG 1 cap PO HS 04/02/19 04/02/19 History [Culturelle] cholecalciferol (vitamin D3) 4,000 unit PO QAM 04/02/19 04/02/19 History [Vitamin D3] fluoxetine 10 mg PO QAM 04/02/19 04/02/19 History levothyroxine 88 mcg PO QAM 04/02/19 04/02/19 History trazodone 150 mg PO HS 04/02/19 04/02/19 History Past Med/Surg History Medical History Anxiety Chronic back pain Depression Fibromyalgia Hearing deficit B/L STONE History of right breast cancer s/p b/l mastectomy- RUE limb restriction Hypothyroidism Irregular heartbeat not noted per 2018 EKG or PCP records Irritable bowel syndrome with constipation Osteoarthritis Temporomandibular joint disorder Surgical History History of ankle surgery RT - hardware present History of bilateral mastectomy History of cataract surgery History of colonoscopy History of D&C History of reconstruction of both breasts History of right hip replacement History of total abdominal hysterectomy and bilateral salpingo-oophorectomy Family History Grandfather (Maternal) Family history of diabetes mellitus Social History Preferred Language: [place] Communication Ability: Effective 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 Beliefs That Will Affect Care: None Current Living Situation: Alone Other Information That Helps Us Care for You: No Feels Safe at Home: Yes Safety Concerns: Feels Safe At This Time Smoking Status: Former smoker Tobacco Type: cigarettes ; Do You Dip or Chew Tobacco: No ; Smoking End Date: QUIT IN HER TEENS ; Second Hand Exposure: Yes ( A CHILD) ; Tobacco Cessation Education Requested by Patient: No Hx Alcohol Use: No Hx Substance Use: No Review of Systems All systems reviewed & are unremarkable except as noted in HPI & below Physical Exam Physical Exam: PHYSICAL EXAMINATION: Skin: The patient's skin is normal in a ppearance. No open skin lesions or discharge. Eyes: Pupils are equal and reactive to light and accommodating. Extraocular movements are intact. Throat: Posterior oropharynx clear with absence of edema, erythema or exudate. Cardiovascular exam: The patient has a grade 1/6 holosystolic murmur heard best over the right upper sternal border. Lungs: Auscultation of lung mcdermott reveals clear breath sounds throughout with no wheezing, rales or rhonchi. Abdomen is obese, nondistended, nontender with normoactive bowel sounds. Extremities: Left hip exam reveals the patient's pain to be reproduced with passive flexion of the hip as well as external rotation and internal rotation in the seated position, which are limited to 35 and 5 degrees respectively. Neurological exam: Cranial nerves 2-12 are intact. No motor or sensory deficit. Psychological/general exam: The patient is alert and oriented x3 with proper grooming and hygiene.
--- NOTE | 2019-04-10 14:25 | Anesthesiology Consultation ---
Date of Service April 10, 2019 Assessment & Plan (1) Encounter for pre-operative examination: Medical Clearance 04/16/19 = "Cleared for surgery. Routine anticipatory guidance." Chart Review Chart Review: Acceptable Risk for Surgery (pending pcp clearance 04/16) and Patient seen in Pre Admission Testing Teaching & Discussion Instructed NPO after midnight before surgery, except medications with 15 cc of water. Medication instructions provided according to the PAT guidelines. History Surgery Operation Date: 04/25/19 08:15 Proposed Procedures p Left Total Hip Arthroplasty - Grzegorz Etienne MD Height/Weight Height: 5 ft 2.5 in Weight: 82.6 kg Allergies Allergy/AdvReac Type Severity Reaction Status Date / Time oxycodone Allergy Unknown Red Rash & Verified 04/02/19 13:54 Slight Fever Medications Home Medications Medication Instructions Recorded Confirmed Last Taken Lactobacillus rhamnosus GG 1 cap PO HS 04/02/19 04/02/19 Unknown [Culturelle] cholecalciferol (vitamin D3) 4,000 unit PO QAM 04/02/19 04/02/19 Unknown [Vitamin D3] fluoxetine 10 mg PO QAM 04/02/19 04/02/19 Unknown levothyroxine 88 mcg PO QAM 04/02/19 04/02/19 Unknown trazodone 150 mg PO HS 04/02/19 04/02/19 Unknown Past Medical History Medical History Anxiety Chronic back pain Depression Fibromyalgia Hearing deficit B/L STONE History of right breast cancer s/p b/l mastectomy- RUE limb restriction Hypothyroidism Irregular heartbeat not noted per 2018 EKG or PCP records Irritable bowel syndrome with constipation Osteoarthritis Temporomandibular joint disorder Has never locked, only clicks. Exercise / Class Metabolic Activity II 4-5 Yardwork/Stairs/Walk up hill (Limited by hip pain so moves slowly but denies CP or SOB with stairs) Past Family History Family History Grandfather (Maternal) Family history of diabetes mellitus Past Surgical History Surgical History History of ankle surgery RT - hardware present History of bilateral mastectomy History of cataract surgery History of colonoscopy History of D&C History of reconstruction of both breasts History of right hip replacement History of total abdominal hysterectomy and bilateral salpingo-oophorectomy History of tubal ligation Past Anesthesia History No Hx of Anesthesia Complications and No Family Hx of Anesthesia Complications History of PONV No Hx of PONV and No Hx of Motion Sickness Social History Smoking Status: Never smoker Do You Dip or Chew Tobacco: No Hx Alcohol Use: No Hx Substance Use: No substance use type: does not use Review of Systems Pt denies any recent chest pain, shortness of breath, palpitations, cough, fever or URI. Physical Exam Vital Signs BP: 143/66 P: 56bpm SPO2: 97% RA T: 98.0 F R: 16 ENMT Mouth: + dental restorations (several crowns) and + small oral opening; no chipped teeth and no loose teeth Thyromental Distance: < 3.5 Finger Breadths (3) Mallampati Class: III Neck normal visual inspection Respiratory normal respiratory effort Auscultation: lungs clear to auscultation bilaterally Cardiovascular Rate/Rhythm: regular rate and regular rhythm Heart Sounds: no murmur Vessels: no carotid bruit Extremities: no edema Testing Laboratory Results 04/10/19 14:50 04/10/19 14:50 PT 10.5 Seconds (9.0-12.0) 04/10/19 14:50 INR 1.0 (0.9-1.1) 04/10/19 14:50 APTT 26.1 Seconds (21.0-31.0) 04/10/19 14:50 Hemoglobin A1c 5.4 % (4.5-5.6) 04/10/19 14:50 Urine Color Yellow 04/10/19 14:50 Urine Appearance Clear (Clear) 04/10/19 14:50 Urine pH 7.0 (4.5-7.5) 04/10/19 14:50 Ur Specific [place] 1.023 (1.000-1.030) 04/10/19 14:50 Urine Protein Negative (Negative) 04/10/19 14:50 Urine Glucose (UA) Negative (Negative) 04/10/19 14:50 Urine Ketones Negative (Negative) 04/10/19 14:50 Urine Nitrite Negative (Negative) 04/10/19 14:50 Ur Leukocyte Esterase 1+ (Negative) H 04/10/19 14:50 Urine WBC (Auto) >30 /hpf (0-5) H 04/16/19 11:51 Urine RBC (Auto) 0-4 /hpf (0-4) 04/16/19 11:51 U Hyaline Cast (Auto) >30 /lpf (0-5) H 04/16/19 11:51 U Epithel Cells (Auto) 5-10 /lpf (0-5) H 04/16/19 11:51 Urine Bacteria (Auto) Negative (Negative) 04/16/19 11:51 Blood Type A Positive 04/10/19 14:50 Antibody Screen NEGATIVE 04/10/19 14:50 04/10/19 14:50 Urine Culture - Final Urine,Clean Catch More than three types of organisms present, all moderate counts mixed probable skin marin. No further identifications or sensitivities to follow. Electrocardiogram Date: 04/10/19 Findings: + SB @ (50bpm) MAGITWA.
[2019-04-10 15:32] LABS: Basophils # (auto) 0.03 K/uL (0-0.2); Basophils % (auto) 0.5 %; Eosinophils # (auto) 0.16 K/uL (0-0.5); Eosinophils % (auto) 2.9 %; Hematocrit (blood only) 37.1 % (37-47); Hemoglobin 12.2 g/dL (12.0-16.0); Immature Granulocytes # (auto) 0.01 K/uL (0.00-0.02); Immature Granulocytes % (auto) 0.2 %; Lymphocytes # (auto) 2.06 K/uL (1.2-3.4); Lymphocytes % (auto) 37.3 %; Mean Corpuscular Hgb Conc 32.9 g/dL (32-36); Mean Corpuscular Volume 88.3 fL (80-100); Mean Platelet Volume 11.5 fL (7.4-10.4); Monocytes % (auto) 7.2 %; Neutrophils # (auto) 2.87 K/uL (1.4-6.5); Neutrophils % (auto) 51.9 %; Platelet Count 271 K/uL (130-400); RDW Coefficient of Variation 13.8 % (11.5-14.5); RDW Standard Deviation 44.7 fL (36.4-46.3); White Blood Count 5.53 K/uL (4.8-10.8)
[2019-04-10 15:38] LABS: Appearance Urine Clear (Clear); Bacteria Urine Automated Negative (Negative); Bilirubin Urine Negative (Negative); Blood Urine Negative (Negative); Cast Urine Automated 0 /lpf (0-5); Color Urine Yellow; Epithelial Cell Urine Auto 20-30 /lpf (0-5); Glucose Urine UA Negative (Negative); Ketones Urine Negative (Negative); Leukocyte Esterase Urine 1+ (Negative); Nitrite Urine Negative (Negative); Protein Urine Negative (Negative); RBC Urine Automated 0-4 /hpf (0-4); Specific Gravity Urine 1.023 (1.000-1.030); Urobilinogen Urine Negative (Negative)
[2019-04-10 15:40] LABS: BUN Creatinine Ratio 23.8 (10-20); Calcium 8.8 mg/dl (8.5-10.1); Creatinine Clr Calc Pharmacy 58.9 ml/min; Est GFR (African American) 77.1; Est GFR (Non-African American) 66.6; Potassium 4.1 mmol/L (3.5-5.1)
[2019-04-10 15:43] LABS: Albumin Globulin Ratio 1.3 (0.9-2); Bilirubin,Total 0.5 mg/dl (0.2-1); Globulin 3.2 gm/dl (2.5-4.0); Total Protein 7.2 gm/dl (6.4-8.2)
[2019-04-10 15:44] LABS: Partial Thromboplastin Time 26.1 Seconds (21.0-31.0); Prothrombin Time 10.5 Seconds (9.0-12.0)
[2019-04-11 05:48] LABS: Estimated Average Glucose 108 mg/dl; Hemoglobin A1C 5.4 % (4.5-5.6)
[2019-04-16 14:58] LABS: Bacteria Urine Automated Negative (Negative); RBC Urine Automated 0-4 /hpf (0-4); WBC Urine Automated >30 /hpf (0-5)
[2019-04-16 15:28] LABS: Cast Urine Automated >30 /lpf (0-5)
[~2019-04-25 07:27] MED LIST changes: +ACETAMINOPHEN 500 MG TAB PO SCH; -ASPI81TA28 PO; +BUPIVACAINE 0.5 % 5 MG/1 ML PF 10ML VIAL ONE; +CEFAZOLIN 2000MG 2,000 MG/15 ML SYR IV SCH; -CHOL20007 PO; -CLB/200 PO; +CeleBREX 200 MG CAP PO SCH; -DSY/150 PO; +FAMOTIDINE 20 MG TAB PO SCH; -FLUO10CA24 PO; +GENERAL ORDER PROBLEM SCH; -LEVO137T3 PO; +LR 500ML BOLUS, THEN 15ML/HR IV SCH; +LR 60ML/HR IV SCH; -MAGN400T6 PO; +METOCLOPRAMIDE HCL 10 MG TABLET PO SCH; +ROPIVACAINE 0.5% HCL/PF 150 MG, BUPIVACAINE 0.5% MPF 30 ML, EPINEPHrine 0.15 MG, Ketoro... INFIL SCH; +ROPIVACAINE 0.5% HCL/PF 150 MG, BUPIVACAINE 0.5% MPF 30 ML, EPINEPHrine 30MG/30ML (OR U... INSTIL SCH; -SACC250C11 PO; +SCOPOLAMINE 1.5 MG TDSY TD SCH; -TRAM-10 PO; +TRAMADOL HCL 50 MG TABLET PO SCH; +TRANEXAMIC ACID 1,000 MG **IV Intra-op IV SCH; +TRANEXAMIC ACID 1,000 MG **IV Pre-op IV SCH; -TYLOTC500 PO; +VANCOMYCIN HCL 1,250 MG in SODIUM CHLORIDE 0.9% 250 ML IV SCH; +dexAMETHasone 4 MG TAB PO SCH
[2019-04-25] MEDS ORDERED: MIDAZOLAM HCL 1 MG/ML 2ML VIAL ONE ×2 (09:13→11:09)
[2019-04-25] MEDS ORDERED: fentaNYL citrate 100 MCG/2 ML VIAL ONE ×4 (09:13→11:11)
[2019-04-25] MEDS ORDERED: fentaNYL citrate 100 MCG/2 ML VIAL IV PRN (09:53)
[2019-04-25] MEDS ORDERED: ATROPINE SULFATE 0.1 MG/ML 10ML SYR IV PRN (09:53)
[2019-04-25] MEDS ORDERED: ePHEDrine sulfate 50 MG/ML AMP IV PRN (09:53)
[2019-04-25] MEDS ORDERED: ONDANSETRON INJ 2 MG/ML 2 ML VIAL IV PRN ×2 (09:53→12:26)
--- NOTE | 2019-04-25 10:08 | History & Physical Bridge Note ---
Date of Service April 25, 2019 History & Physical Bridge Note I have examined the patient, reviewed the History & Physical and in the interval since the performance of the History & Physical I have noted the following changes of clinical significance: no changes noted
[2019-04-25] MEDS ORDERED: ORTHO JOINT ANESTHETIC ONE (10:12)
[2019-04-25] MEDS ORDERED: PROPOFOL IV EMULSION 10 MG/ML 20 ML VIAL IV ONE (11:10)
[2019-04-25] MEDS ORDERED: ONDANSETRON INJ 2 MG/ML 2 ML VIAL ONE (11:10)
[2019-04-25] MEDS ORDERED: LIDOCAINE HCL 2% 2 ML VIAL/AMP(20MG/ML) INFIL ONE (11:10)
--- NOTE | 2019-04-25 12:24 | Operative Report ---
Post Operative Report Pre & Post Diagnosis Operation Date: 04/25/19 10:10 Pre-Op Diagnosis: Left Hip Osteoarthritis Post-Op Diagnosis: Left Hip Osteoarthritis I identified the patient and participated in the time-out.: Yes Procedure Operation Date: 04/25/19 10:10 Actual Procedures p Left Total Hip Arthroplasty(Left) - Grzegorz Etienne MD Surgeon Grzegorz Etienne MD Back Tender Pulp Drier RIAZ Conner PA-C Estimated Blood Loss 100 Findings Consistent with Post-Op Diagnosis Specimens Femoral head Anesthesia Type Spinal MAC Complications none Disposition Accompanied Patient To Recovery: No Disposition: Recovery Room Description of Procedure see dictated note I attest to the content of the Intraoperative Record and any orders documented therein. Any exceptions are noted below.
--- NOTE | 2019-04-25 12:25 | Operative Report ---
Post Operative Report Pre & Post Diagnosis Operation Date: 04/25/19 10:10 Pre-Op Diagnosis: Left Hip Osteoarthritis Post-Op Diagnosis: Left Hip Osteoarthritis I identified the patient and participated in the time-out.: Yes Procedure Operation Date: 04/25/19 10:10 Actual Procedures p Left Total Hip Arthroplasty(Left) - Grzegorz Etienne MD Surgeon Grzegorz Etienne MD It Consulting Manager Bina Conner PA-Erik Estimated Blood Loss 100 Findings Consistent with Post-Op Diagnosis Specimens Left femoral head Complications none Disposition Accompanied Patient To Recovery: Yes Disposition: Recovery Room Description of Procedure I was present during the entire procedure assisting with wound closure and dressing application. Please see Dr. Etienne procedure note for specifics of the case. I attest to the content of the Intraoperative Record and any orders documented therein. Any exceptions are noted below.
[2019-04-25] MEDS ORDERED: DiphenhydrAMINE HCL 50 MG/ML VIAL IV PRN (12:26)
[2019-04-25] MEDS ORDERED: ALUMINUM/MAGNESIUM SUSP 30 ML UDC PO PRN (12:26)
[2019-04-25] MEDS ORDERED: NALOXONE HCL 0.4 MG/1 ML VIAL/CARP IV PRN (12:26)
[2019-04-25] MEDS ORDERED: MAGNESIUM HYDROXIDE SUSP 30 ML UDC PO PRN (12:26)
[2019-04-25] MEDS ORDERED: HYDROmorphone INJ 0.5 MG/0.5 ML SYR IV PRN (12:26)
[2019-04-25] MEDS ORDERED: OXYCODONE HCL IR 5 MG TAB (IMMEDIATE RELEASE) PO PRN (12:26)
[2019-04-25] MEDS ORDERED: METOCLOPRAMIDE HCL INJ 5 MG/ML 2 ML VIAL IV PRN (12:26)
[2019-04-25] MEDS ORDERED: bisacodyL 10 MG SUPP PR PRN (12:26)
--- NOTE | 2019-04-25 12:50 | Operative Report ---
DATE OF OPERATION: 04/25/2019 PREOPERATIVE DIAGNOSIS: Left hip osteoarthritis. POSTOPERATIVE DIAGNOSIS: Left hip osteoarthritis. OPERATIONS PERFORMED: Left total hip arthroplasty. SURGEON: Grzegorz Etienne MD. AUTOMOTIVE PARTS COORDINATOR: Richie Conner. ESTIMATED BLOOD LOSS: 100 mL INTRAVENOUS FLUIDS: 1400 mL crystalloid. SPECIMENS: Femoral head. COMPLICATIONS: None. IMPLANTS: 1. DePuy [place] Gription acetabular shell sector cup 52 mm outer diameter. 2. DePuy [place] cancellous bone screw 6.5 x 45 mm. 3. DePuy Ultrex polyethylene liner for a 32 mm femoral head. 4. DePuy [place] femoral stem with a 12/14 taper size 4 standard offset. 5. DePuy metal Articul/Ponce femoral head, 32 mm diameter with a +5 offset. INDICATIONS: Ms. Christianson is a 74-year-old female who is status post a right total hip arthroplasty in 05/2017, almost 2 years ago. She had an excellent result from the surgery. She has now developed end-stage osteoarthritis of the left hip with symptoms similar to other side. X-rays demonstrate severe osteoarthritis. She has failed conservative management. I had a long discussion with her about the risks and benefits of surgery, alternatives to surgery and expected outcomes. After reviewing all these, she elected to proceed with surgery. All questions were answered. Informed consent was signed. OPERATIVE FINDINGS: Severe degenerative osteoarthritis of the hip was noted. She also had a retroverted acetabulum with a prominent anterior rim. A total hip arthroplasty was performed through a posterior approach utilizing metal on polyethylene bearing surface. The anterior osteophyte was resected. Components implanted were the same as were used in her other hip with the exception of the cancellous screws. DESCRIPTION OF THE OPERATION: The patient was identified in the preoperative holding area where her surgical site was marked. She was given a spinal anesthetic and brought back to main operating room where she was placed on the operating table and IV sedation was administered. She was carefully moved into the lateral decubitus position. Axillary roll was placed. All bony prominences were padded. Perioperative antibiotics and tranexamic acid were administered. She was prepped and draped in the normal sterile fashion. Prior to incision, a multidisciplinary timeout was called. All in the room were in agreement. We began by checking her leg lengths. She was a couple millimeters shorter on the left side than the right side. We then made our posterior approach to the hip utilizing a 14 cm long incision. I dissected down through subcutaneous tissues to the level of the fascia. Fascia was incised in line with the incision. The Charnley bow was placed. The piriformis and short external rotators were dissected off the posterior aspect of the hip. A box cut was made in the capsule. The hip was dislocated. Our femoral neck cut was made at our preoperatively templated distance of approximately 10 mm above the lesser trochanter. The femoral head was removed and sent for permanent section. The acetabulum was then exposed. The labrum was sharply excised. The contents of cotyloid fossa removed. She had a very prominent anterior acetabular rim. She also had significant medial osteophyte formation. We started by medializing her acetabulum using a size 44 reamer. We then sequentially reamed up all the way to a size 52 cup. We then opened up the size 52 cup and impacted it down into position at 45 degrees of lateral opening and 25 degrees of anteversion. A single cancellous bone screw was placed up into the ilium. Excellent fixation was obtained. At this point, the polyethylene liner was impacted into position and the locking mechanism was checked and was solid. We then resected the anterior osteophyte from a retroverted acetabulum. Next, the femur was exposed. The lateral neck was removed with a box osteotome. The intramedullary guide was used followed by a lateralizing reamer. We then reamed her up to a size 4 Chilo stem which is what she has on the other side. We then broached up to a size 4, which gave us excellent torsional stability. We then trialled. She trialled a little bit short with the +5 femoral head, so we upsized it to the +8 femoral head. Here her leg lengths were better. However, we had a little bit of difficulty reducing the hip because of lengthening her leg. We then removed the broach and opened up the size 4 Chilo standard offset stem. When we impacted this, it sat about 4 mm more prominent than the broach. Therefore, we elected to retrial her with the +5 offset femoral head. We now had symmetric leg lengths and an excellent stability exam with very tight shuck test and no impingement in external rotation and extension. She was stable in the sleeper position. At 90 degrees, hip flexion, she could be internally rotated 45 degrees before levering out of the cup. I was very happy with the stability exam. We therefore opened up the real 32 mm diameter metal femoral head with a +5 offset and impacted it onto the trunnion, which had been cleaned and dried. The hip was atraumatically reduced. We then began to close. The wound was irrigated with copious amounts of dilute Betadine solution. The periarticular injection cocktail was placed around the capsule as well as within the subcutaneous tissues. The piriformis and short external rotators as well as a posterior capsule were repaired through bone tunnel and through the abductor tendon and the posterior aspect of the greater trochanter. The fascia was run using a #1 looped PDS suture. The deep dermis was closed with 2 layers of #1 PDS. The subcutaneous layers were closed with 2 layers of #1 PDS. The deep dermis was closed with 2-0 Vicryl. Zipline was used for the skin. A Silverlon dressing was placed followed by compressive dressing. The patient was then rolled supine. We once again checked our leg lengths, which were symmetric. She was then moved on to the hospital bed and transferred to recovery room in stable condition. POSTOPERATIVE COURSE: The patient will be admitted overnight for pain control and monitoring. She will be on aspirin for DVT prophylaxis. She will be weightbearing as tolerated with posterior hip precautions. X-rays are pending in the recovery room. I attest to the content of the Intraoperative Record and any orders documented therein. Any exceptions are noted below. PERICO
--- NOTE | 2019-04-25 12:57 | XRay Report ---
XR hip 1V LT w pelvis CLINICAL HISTORY: IN PACU - A/P PELVIS and LATERAL HIP COMPARISON: 03/26/2019 DISCUSSION: Pre-existing right hip arthroplasty. Placement of a total left hip arthroplasty. Could co ntact between prosthetic and underlying bone. Expected soft tissue postoperative change IMPRESSION: Anatomic alignment posttotal left hip arthroplasty. The above report was generated using voice recognition software. It may contain grammatical, syntax or spelling errors. Electronically signed by: Skyler Sun M.D. 04/25/2019 12:55 PM
[2019-04-25] MEDS: KETOROLAC TROMETHAMINE 15 MG/ML VIAL IV SCH ×2 (14:18→21:19)
[2019-04-25] MEDS: ACETAMINOPHEN 500 MG TAB PO SCH ×2 (14:18→21:22)
[2019-04-25] MEDS: SODIUM CHLORIDE 0.9% 1000ML 1,000 ML IV SCH ×2 (14:19→23:25)
--- NOTE | 2019-04-25 14:53 | Anesthesiology Progress Note ---
Date of Service April 25, 2019 Anesthesia Post Procedure Vital Signs Vital Signs: Temp Pulse Pulse Resp BP Pulse Ox 04/25/19 14:28 36.7 C 17 118/80 96 04/25/19 13:58 36.7 C 16 119/73 94 04/25/19 13:00 36.8 C 71 17 112/50 L 97 04/25/19 12:50 72 16 107/64 96 04/25/19 12:40 75 18 112/66 95 04/25/19 12:30 79 15 114/50 L 96 04/25/19 12:24 36.4 C L 79 16 113/59 L 95 04/25/19 08:30 36.5 C 56 L 18 175/75 H 95 Transfer of Care Handoff Completed per policy Notes Mental Status: alert / awake / arousable Patient Amnestic to Procedure: Yes Nausea / Vomiting: adequately controlled Pain: adequately controlled Airway Patency, RR, SpO2: stable & adequate BP & HR: stable & adequate Hydration State: stable & adequate Neuraxial Anesthesia: was administered and sensory block is resolving Anesthetic Complications: no major complications apparent and Pt Satisfied with anesthetic care
[2019-04-25] MEDS: CHECK SCOPOLAMINE PATCH PLACEMENT SCH ×2 (15:30→23:33)
[2019-04-25] MEDS: CEFAZOLIN 2000MG 2,000 MG/15 ML SYR IV SCH (17:47)
[2019-04-25] MEDS ORDERED: TRANEXAMIC ACID / 0.7% NACL 1,000 MG/100 ML BAG IV SCH (18:30)
[2019-04-25] MEDS ORDERED: TRAZODONE HCL 50 MG TAB PO SCH (21:00)
[2019-04-25] MEDS ORDERED: LACTOBACILLUS ACIDOPHILUS (FLORANEX) TAB PO SCH (21:00)
[2019-04-25] MEDS ORDERED: SENNA 8.6 MG TAB PO SCH (21:00)
[2019-04-25] MEDS: ASPIRIN 81 MG ECTAB PO SCH (21:23)
[2019-04-25] MEDS: DOCUSATE SODIUM 100 MG CAP PO SCH (21:25)
[2019-04-26] MEDS: CEFAZOLIN 2000MG 2,000 MG/15 ML SYR IV SCH (02:09)
[2019-04-26] MEDS: KETOROLAC TROMETHAMINE 15 MG/ML VIAL IV SCH ×2 (02:10→07:30)
[2019-04-26] MEDS: ACETAMINOPHEN 500 MG TAB PO SCH (04:53)
[2019-04-26 06:06] LABS: Hematocrit (blood only) 29.7 % (37-47); Hemoglobin 9.6 g/dL (12.0-16.0); Immature Granulocytes # (auto) 0.03 K/uL (0.00-0.02); Immature Granulocytes % (auto) 0.2 %; Lymphocytes # (auto) 1.16 K/uL (1.2-3.4); Lymphocytes % (auto) 9.4 %; Mean Corpuscular Hemoglobin 28.2 pg (25-34); Mean Corpuscular Hgb Conc 32.3 g/dL (32-36); Mean Corpuscular Volume 87.4 fL (80-100); Mean Platelet Volume 10.9 fL (7.4-10.4); Monocytes # (auto) 1.04 K/uL (0.11-0.59); Monocytes % (auto) 8.4 %; Platelet Count 216 K/uL (130-400); RDW Coefficient of Variation 14.2 % (11.5-14.5); White Blood Count 12.33 K/uL (4.8-10.8)
[2019-04-26] MEDS ORDERED: LEVOTHYROXINE SODIUM 88 MCG TABLET PO SCH (06:30)
[2019-04-26 06:40] LABS: BUN Creatinine Ratio 13.7 (10-20); Calcium 8.6 mg/dl (8.5-10.1); Creatinine Clr Calc Pharmacy 51.1 ml/min; Est GFR (African American) 65.2; Est GFR (Non-African American) 56.2; Potassium 3.9 mmol/L (3.5-5.1)
[2019-04-26] MEDS ORDERED: dexAMETHasone 4 MG TAB PO SCH (08:00)
--- NOTE | 2019-04-26 08:01 | Anesthesiology Progress Note ---
Date of Service April 26, 2019 Anesthesia Post Procedure Vital Signs Vital Signs: Temp Pulse Pulse Resp BP Pulse Ox 04/26/19 03:15 36.8 C 52 L 14 157/75 H 91 04/26/19 00:17 36.8 C 63 15 122/63 93 04/25/19 20:52 36.5 C 62 16 125/72 93 04/25/19 16:49 36.5 C 72 16 140/78 91 04/25/19 15:34 36.2 C L 73 18 117/75 98 04/25/19 14:28 36.7 C 17 118/80 96 04/25/19 13:58 36.7 C 16 119/73 94 04/25/19 13:00 36.8 C 71 17 112/50 L 97 04/25/19 12:50 72 16 107/64 96 04/25/19 12:40 75 18 112/66 95 04/25/19 12:30 79 15 114/50 L 96 04/25/19 12:24 36.4 C L 79 16 113/59 L 95 04/25/19 08:30 36.5 C 56 L 18 175/75 H 95 Notes Mental Status: alert / awake / arousable and participated in evaluation Patient Amnestic to Procedure: Yes Nausea / Vomiting: adequately controlled Pain: adequately controlled Airway Patency, RR, SpO2: stable & adequate BP & HR: stable & adequate Hydration State: stable & adequate Neuraxial Anesthesia: sensory block resolved Anesthetic Complications: no major complications apparent
[2019-04-26] MEDS: ASPIRIN 81 MG ECTAB PO SCH (08:40)
[2019-04-26] MEDS: DOCUSATE SODIUM 100 MG CAP PO SCH (08:40)
[2019-04-26] MEDS ORDERED: FLUOXETINE HCL 10 MG CAP PO SCH (09:00)
[2019-04-26] MEDS ORDERED: CHOLECALCIFEROL 1,000 UNITS TAB PO SCH (09:00)
[2019-04-26] MEDS ORDERED: MULTIVITAMIN TAB PO SCH (09:00)
--- NOTE | 2019-04-26 10:51 | Orthopedic Progress Note ---
Date of Service April 26, 2019 Assessment & Plan (1) S/P total hip arthroplasty: Total hip precautions Did well with PT/OT Ice with EZ wrap Abduction pillow use DVT prophy with Aspirin and TEDs Discharge home with inhome rehab Pain control with PO meds WBAT with walker assistance F/u at [facility] as scheduled With questions call Subjective This 74 yo F is day 1 s/p Left total hip arthroplasty. She is doing very well and states that her pain is well controlled with PO meds. She did well with PT/OT this AM and is planning on home health services coming to do her therapy upon discharge. She denies CP, SOB, nausea, vomiting, fever, chills, sweats, fatigue or numbness/tingling in her Left LE. Review of Systems Review of Systems: All systems reviewed & are unremarkable except as noted in HPI & below Physical Exam Physical Exam: Left hip: Dressing clean, dry and intact. Able to perform SLRT. No pain with light passive log roll, internal /external rotation. Calf soft and supple. Able to dorsi/plantar flex foot. Able to depict light sensa tion to touch around dressing. NV intact. Results & Data Vital Signs (Past 12 Hours) Vital Signs Temp Pulse Pulse Resp BP Pulse Ox 04/26/19 07:59 36.6 C 59 L 13 158/75 H 91 04/26/19 03:15 36.8 C 52 L 14 157/75 H 91 04/26/19 00:17 36.8 C 63 15 122/63 93 Laboratory Results 04/26/19 04/26/19 Range/Units 05:55 05:55 WBC 12.33 H (4.8-10.8) K/uL RBC 3.40 L (4.2-5.4) M/uL Hgb 9.6 L (12.0-16.0) g/dL Hct 29.7 L (37-47) % MCV 87.4 (80-100) fL MCH 28.2 (25-34) pg MCHC 32.3 (32-36) g/dL RDW Std Deviation 45.0 (36.4-46.3) fL RDW Coeff of Lauren 14.2 (11.5-14.5) % Plt Count 216 (130-400) K/uL MPV 10.9 H (7.4-10.4) fL Immature Gran % (Auto) 0.2 % Neut % (Auto) 82.0 % Lymph % (Auto) 9.4 % [place] % (Auto) 8.4 % Eos % (Auto) 0.0 % Baso % (Auto) 0.0 % Immature Gran # (Auto) 0.03 H (0.00-0.02) K/uL Neut # (Auto) 10.10 H (1.4-6.5) K/uL Lymph # (Auto) 1.16 L (1.2-3.4) K/uL [place] # (Auto) 1.04 H (0.11-0.59) K/uL Eos # (Auto) 0.00 (0-0.5) K/uL Baso # (Auto) 0.00 (0-0.2) K/uL Sodium 141 (136-145) mmol/L Potassium 3.9 (3.5-5.1) mmol/L Chloride 111 H (98-107) mmol/L Carbon Dioxide 25 (21-32) mmol/L Anion Gap 5.0 (3-11) BUN 14 (7-18) mg/dl Creatinine 1.00 (0.6-1.2) mg/dl Est Cr Clr Drug Dosing 51.1 ml/min Est GFR ( Amer) 65.2 Est GFR (Non-Af Amer) 56.2 BUN/Creatinine Ratio 13.7 (10-20) Glucose 129 H (70-99) mg/dl Calcium 8.6 (8.5-10.1) mg/dl
--- NOTE | 2019-04-26 11:49 | Discharge Summary ---
Date of Service April 26, 2019 Admission HPI Per Admitting Provider HISTORY OF PRESENT ILLNESS: This 74-year-old female presents to the clinic today for a preoperative history and physical. The patient has had a longstanding history of significant right hip pain for the past several years. The patient states she has been receiving massage therapy with no relief of her back or hip pain. She takes Aleve twice daily, which helps mildly. The patient also states she sees a chiropractor for spinal stenosis, but continues to have hip pain and states that it is affecting her daily life and prevents her from walking long distances that she had done regularly for several years. The patient refers most of her pain to the anterolateral aspect of her left hip. The patient denies numbness or tingling in her left lower extremity or any traumatic injury that may have caused this issue. PAST MEDICAL HISTORY: Depression, diverticulosis, fibromyalgia, gastroesophageal reflux, breast cancer, hypothyroidism, insomnia, lactose intolerance, lumbar spinal stenosis, obesity, osteopenia, and stress incontinence. PAST SURGICAL HISTORY: Right total hip arthroplasty, Colonoscopy, bilateral mastectomy, biopsy of the breast, excision of mastectomy scar, breast reconstruction, lymphoscintigraphy, core needle biopsy of the breast under ultrasound guidance, bilateral blepharoplasty, right ankle open reduction internal fixation. Total abdominal hysterectomy with bilateral salpingo-oop horectomy, dilation and curettage, basal cell carcinoma from the right calf and forehead, left cataract removal, bilateral tubal ligation. FAMILY HISTORY: Father: Aortic aneurysm, coronary artery bypass graft, smoking history, and colonic polyps. Mother: Cigarette smoker, COPD, osteoporosis. Daughter: Hypothyroidism. Son: Hypertension. Maternal grandfather: Type 2 diabetes. ALLERGIES: THE PATIENT HAS MEDICATION ALLERGIES TO CELEXA, EFFEXOR AND PERCOCET 5/325. CURRENT MEDICATIONS: Fluoxetine 10-mg oral tablet 1 cap daily, levothyroxine 88-mcg oral tablet 1 tab daily, trazodone 150-mg oral tablet 1/2 tab at bedtime, Tylenol Arthritis extended release 650-mg oral tablet 2 tabs every 8 hours as needed, vitamin D3 2000 international unit capsule 2 caps daily. SOCIAL HISTORY: The patient denies a history of cigarette smoking, drug abuse or any alcohol use. Admission Exam Per Admitting Provider PHYSICAL EXAMINATION: Skin: The patient's skin is normal in appearance. No open skin lesions or discharge. Eyes: Pupils are equal and reactive to light and accommodating. Extraocular movements are intact. Throat: Posterior oropharynx clear with absence of edema, erythema or exudate. Cardiovascular exam: The patient has a grade 1/6 holosystolic murmur heard best over the right upper sternal border. Lungs: Auscultation of lung mcdermott reveals clear breath sounds throughout with no wheezing, rales or rhonchi. Abdomen is obese, nondistended, nontender with normoactive bowel sounds. Extremities: Left hip exam reveals the patient's pain to be reproduced with passive flexion of the hip as well as external rotation and internal rotation in the seated position, which are limited to 35 and 5 degrees respectively. Neurological exam: Cranial nerves 2-12 are intact. No motor or sensory deficit. Psychological/general exam: The patient is alert and oriented x3 with proper grooming and hygiene. Principal Diagnosis Left hip osteoarthritis Discharge Exam Left hip: Dressing clean, dry and intact. Able to perform SLRT. No pain with light passive log roll, internal /external rotation. Calf soft and supple. Able to dorsi/plantar flex foot. Able to depict light sensation to touch around dressing. NV intact. Discharge Data Allergies Allergy/AdvReac Type Severity Reaction Status Date / Time oxycodone Allergy Unknown Red Rash & Verified 04/25/19 08:20 Slight Fever Consultations 04/26/19 08:00 Consult Case Management - Discharge Planning Routine Procedures Performed Operation Date: 04/25/19 10:10 Actual Procedures p Left Total Hip Arthroplasty(Left) - Grzegorz Etienne MD Hospital Course (1) S/P total hip arthroplasty: Patient did very well overnight and with PT/OT this AM. Plan is discharge later today with home health services and then to start outpatient rehab after 2 wk f/u. Patient is very please with the results of her surgery. Total hip precautions Did well with PT/OT Ice with EZ wrap Abduction pillow use DVT prophy with Aspirin and TEDs Discharge home with inhome rehab Pain control with PO meds WBAT with walker assistance F/u at [facility] as scheduled With questions call Total Time Total Time Spent Total Time Spent (In Minutes): 20 mins Total Time Includes: Examination of the Patient, Discharge Planning and Medication Reconciliation Discharge Plan Discharge Items Patient Disposition: Home - Home Health Services Reason For Visit: Left Hip Osteoarthritis Discharge Diagnosis: Left hip osteoarthritis Activity: As commented below Lifting: None Bathing: Keep incision dry Bathing Comment: May shower tomorrow Sexual Activity: Wait until after follow-up appointment Exercise/Sports: Wait until after follow-up appointment Driving/Machine Use: No driving until cleared by clutch specialist Weightbearing: Left weightbearing Weightbearing Comment: as tolerated with walker assistance Non-emergency contact: Primary Care Provider Call non-emergency contact if: you have any medication questions, your pain is not controlled, your temperature is above 101.5, your wound has increased redness, your wound has increased drainage and your wound pain has increased Follow-up/Referrals: Orlando Daniel MD [Primary Care Provider] - Diet: Regular Addtl Attending Provider Instructions: Post-operative Instructions Dear Patient and Family/Friends, Before you are discharged from the hospital, it is important to know what to expect when you get home after surgery. To that end, we have created this sheet of discharge instructions which covers many commonly asked questions. Make sure you go through this sheet in its entirety with your nurse before you are discharged. Please note that we will go over the specifics of your surgery and recovery when you return for your first post-operative visit. Sincerely, Dr. Etienne Medications 1. Aspirin 81 mg: Please purchase. Take 1 tab twice daily for 30 days post op for blood clot prevention. 2. Oxycodone 5 mg: an Rx will be sent to your pharmacy. Take 1-2 tabs po q 4-6 hrs prn pain. #30 tabs dispensed. 3. Diclofenac Sodium 75 mg: an Rx will be sent to your pharmacy. Take 1 tab twice daily for 30 days post operatively for pain relief. 1 refill will be provided 4. Extra Strength Tylenol 500 mg: Please purchase. Take 2 tabs with every other dose of the Oxycodone. When Oxy is finished you may take 1-2 tabs every 6 hrs for pain control for 30 days post operatively. Pain Expect to be in a fair amount of pain after surgery. Remember, our goal is not to eliminate your pain, but to make it tolerable. It is a good idea to stay ahead of your pain by taking the medications you were prescribed once you get home. Typically, the pain starts improving 3-7 days after surgery. You should start weaning off the narcotic pain medication (oxycodone, hydrocodone, hydromorphone, morphine) as soon as your pain improves. Please call our office if your pain is not adequately controlled. Ice Ice your operative site at least 5 times a day for 15-30 minutes at a time. Make sure you have a thin cloth between the ice or cooling unit and your skin to prevent henao bite. This is especially important if you received a nerve block. Continue icing your operative site for the first 5-7 days after surgery, then as needed. Diet/Nausea/Vomiting Start by drinking clear liquids and eating crackers. If you can tolerate this, then you may resume your normal diet. If you feel nauseated or vomit, take Zofran/ondansetron (if prescribed). Please call our office if you have intractable nausea or vomiting, or, if after hours, you may go to the Emergency Room for help. Constipation Constipation is a common side effect of narcotic pain medication. If you have not had a bowel movement within 2 days after surgery, we recommend purchasing an over the counter laxative such as Milk of Magnesia, Dulcolax, or Miralax from a local pharmacy, and taking it as instructed. Call our clinic if any questions. Nerve block The anesthesia team sometimes places a nerve block to help with post-operative pain control. This results in significant numbness and inability to move the extremity. The nerve block usually wears off in 8-12 hours, but sometimes can last up to 24 hours. Please call our office if you are still unable to move your extremity after 24 hours, unless you received a pain pump to take home. Nerve blocks typically wear off quickly, so start taking pain medication as soon as you start feeling soreness near your surgical site. Weight bearing and Range of Motion. Do not bear any weight through your operative extremity immediately after surgery. If you had upper extremity surgery, do not lift anything with that arm. If you are in a knee brace, keep it locked in place until your follow-up. We will discuss your weight bearing, range of motion, and lifting restrictions in detail at your first post-operative appointment. Continuous Passive Motion (CPM) Machine If you were prescribed a CPM machine, it will start after your first post- operative appointment, at which time we will give you instructions on the range of motion settings and duration of treatment Physical therapy You will be given a prescription for physical therapy or occupational therapy at your first post-operative appointment. Typically, patients start therapy within 1 week of surgery Wound care and showering We will inspect your wound at your first post-operative visit, and may do a dressing change at that time. Most patients will be in a water-proof dressing th at is removed 14 days after surgery. It is normal to see some dried blood on the dressing. Do not remove your dressing, paper strips or sutures yourself unless you are given permission. Showering is allowed the day after surgery. Do not scrub or remove any dressings. The wound should not be submerged underwater (i.e. in a bathtub or pool) until 4 weeks after surgery KENDRA stockings If you were given white stockings, these are to be worn at all times except to shower (on both legs) for the first 2 weeks after surgery. Driving You may not drive while taking narcotic pain medication or while in a cast, splint, sling or brace. You, the patient, need to make the final determination about when you are safe to drive, however, the earliest you may consider driving after surgery is below: Hand/Wrist/Elbow Surgery: 3 days Shoulder Surgery: 2 weeks Hip,/Knee/Ankle Surgery: 4 weeks Fracture repair: 6 weeks Return to Work Your return to work depends on what surgery was done and what type of work you do. Please bring any paperwork your employer needs completed to your first post-operative visit. Also, bring a description of your job duties, as this helps us to understand what risks you may face at work. Travel Avoid long distance travel (greater than 1 hour) in airplanes and cars for the first 6 weeks after surgery. If you must travel, you need to have a Doppler ultrasound done before you travel to rule out a blood clot in your legs. Follow-up You should have a follow-up appointment already scheduled 1-2 days after surgery. If not, please contact our office to make this appointment before you leave the hospital. When to call the office It is normal to have swelling and bruising in the limb that was operated on. This will improve with time. It is also normal to have fevers for the first 2 days after surgery. Reasons you should call your doctor include: Uncontrolled pain; Nausea, vomiting, or constipation that does not improve with medication; Fevers over 101.5, chills, sweats; Drainage or bleeding from the wound; Foul odor; Spreading areas of redness; Any other concerns Pending Studies at Discharge: No Stand-Alone Forms: [facility] Medications and DC Order Prescriptions: New aspirin [Ecotrin Low Strength] 81 mg Tablet,Delayed Release (Dr/Ec) 81 mg PO BID 30 Days Qty: 60 RF: 0 diclofenac sodium 75 mg tablet,delayed release (DR/EC) 75 mg PO BID PRN (Reason: pain) Qty: 60 RF: 1 oxycodone 5 mg tablet 5 mg PO Q6H PRN (Reason: pain) Qty: 30 RF: 0 Continued fluoxetine 10 mg Tablet 10 mg PO QAM RF: 0 levothyroxine 88 mcg Tablet 88 mcg PO QAM RF: 0 trazodone 150 mg Tablet 150 mg PO HS RF: 0 Culturelle 10 billion cell Capsule 1 cap PO HS RF: 0 Vitamin D3 4,000 unit Capsule 4,000 unit PO QAM RF: 0 Discharge Orders: Discharge Order (Routine); Ordered 04/26/19 Ordered By: Richard Conner Admission Data Admit Date/Time: 04/25/19 12:26 Attending Provider: Grzegorz Etienne Admit Provider: Grzegorz Etienne Primary Care Provider: Orlando Daniel Other Providers: [facility]
[2019-04-26] MEDS ORDERED: CeleBREX 200 MG CAP PO SCH (21:00)
== END 2019-04-26 12:22 | disposition home health service (06) | DRG 470 ==
LOC: ASU 07:27 → 3E 12:26